=== PATIENT | male | born 1950 | race Caucasian/White ===

== ENCOUNTER → 2016-11-20 | Outpatient (CLI) | payer MEDICARE, OTHER ==
[2016-11-20 13:06] LABS: BASOPHILS % (AUTO) 0.6 %; EOSINOPHILS # (AUTO) 0.2 10^3/uL (0.0-0.7); EOSINOPHILS % (AUTO) 2.9 %; HCT - HEMATOCRIT 40.3 % (42.0-52.0); HGB - HEMOGLOBIN 13.5 g/dL (14.0-18.0); LYMPHOCYTES % (AUTO) 14.2 %; MEAN CORPUSCULAR HEMOGLOBIN 29.1 pg (27.0-31.0); MEAN CORPUSCULAR HGB CONC 33.6 g/dL (32.0-36.0); MEAN CORPUSCULAR VOLUME 86.6 fL (80.0-94.0); MEAN PLATELET VOLUME 9.4 fL (7.4-11.4); MONOCYTES # (AUTO) 0.5 10^3/uL (0.0-1.0); MONOCYTES % (AUTO) 7.7 %; NEUTROPHILS % (AUTO) 74.6 %; RED BLOOD COUNT 4.65 10^6/uL (4.70-6.10); RED CELL DISTRIBUTION WIDTH 14.6 % (12.0-15.0); UNCORRECTED WHITE BLOOD COUNT 6.7 x10^3/uL; WHITE BLOOD COUNT 6.7 x10^3/uL (4.8-10.8)
[2016-11-20 13:18] LABS: ALBUMIN/GLOBULIN RATIO 1.2 (1.0-2.2); BILIRUBIN,TOTAL 0.7 mg/dL (0.2-1.0); CALCIUM 8.4 mg/dL (8.5-10.3); CREATININE 0.9 mg/dL (0.6-1.2); POTASSIUM 3.8 mmol/L (3.5-5.0); TOTAL PROTEIN 6.8 g/dL (6.7-8.2)
== END ==
LOC: LAB.WCP 08:00
PROVIDERS: ATTEND Family Medicine
DX: R06.09 Other forms of dyspnea (principal); R01.1 Cardiac murmur, unspecified; M79.661 Pain in right lower leg
CPT/HCPCS: 36415; 80053; 83880; 85025

== ENCOUNTER 2016-12-04 10:15 | Outpatient (CLI) | payer MEDICARE, OTHER ==
[2016-12-04 13:05] LABS: BASOPHILS # (AUTO) 0.1 10^3/uL (0.0-0.1); BASOPHILS % (AUTO) 1.3 %; EOSINOPHILS # (AUTO) 0.3 10^3/uL (0.0-0.7); EOSINOPHILS % (AUTO) 5.2 %; HCT - HEMATOCRIT 42.4 % (42.0-52.0); HGB - HEMOGLOBIN 14.1 g/dL (14.0-18.0); LYMPHOCYTES # (AUTO) 1.2 10^3/uL (1.5-3.5); LYMPHOCYTES % (AUTO) 21.7 %; MEAN CORPUSCULAR HGB CONC 33.2 g/dL (32.0-36.0); MEAN CORPUSCULAR VOLUME 87.5 fL (80.0-94.0); MEAN PLATELET VOLUME 9.6 fL (7.4-11.4); MONOCYTES # (AUTO) 0.4 10^3/uL (0.0-1.0); MONOCYTES % (AUTO) 7.4 %; NEUTROPHILS # (AUTO) 3.5 10^3/uL (1.5-6.6); NEUTROPHILS % (AUTO) 64.4 %; NUCLEATED RED BLOOD CELLS AUTO 0.2 /100WBC; RED BLOOD COUNT 4.85 10^6/uL (4.70-6.10); UNCORRECTED WHITE BLOOD COUNT 5.5 x10^3/uL; WHITE BLOOD COUNT 5.5 x10^3/uL (4.8-10.8)
[2016-12-04 13:36] LABS: FERRITIN 122.1 ng/mL (23.9-336.2)
[2016-12-04 13:47] LABS: IRON 38 ug/dL (45-182); TOTAL IRON BINDING CAPACITY 293 ug/dL (250-450); TRANSFERRIN 209 mg/dL (180-329)
== END 2016-12-04 10:16 | disposition home or self-care (01) ==
LOC: LAB.WCP 10:15
PROVIDERS: ATTEND Physician Assistant Medical
DX: D64.9 Anemia, unspecified (principal)
CPT/HCPCS: 36415; 82607; 82728; 82746; 83540; 84466; 85025

== ENCOUNTER 2016-12-12 08:34 | Outpatient (CLI) | payer MEDICARE, OTHER ==
--- NOTE | 2016-12-12 11:24 | CARDIAC PROCEDURE NOTE ---
DATE OF SERVICE: 12/12/2016 00:00:00 PRIMARY CARE PHYSICIAN: Sun Mckeon PA-C. ORDERING PHYSICIAN: Yamil Mercado MD. PROCEDURE: Stress echocardiogram. PROCEDURE SYMPTOMS: Dyspnea on exertion and undiagnosed murmur. CARDIAC RISK FACTORS: Age, hypertension, hyperlipidemia and smoker. PREVIOUS CARDIAC PROCEDURES: None. CURRENT SYMPTOMATOLOGY: None. CLINICAL HISTORY: A 66-year-old male without known coronary artery disease. The patient decided on his own not to take his blood pressure medicines this morning. INITIAL RESTING VITAL SIGNS: Blood pressure 174/104, heart rate 86, height 69 inches, weight 263 pounds. BMI 38.9. PROCEDURE AND FINDINGS: The patient's identity and date verified. Consent signed. After resting echocardiogram images were obtained, the patient performed treadmill exercise using a Luis Fernando protocol completing 6 minutes, 19 seconds and an estimated workload of 7.0 metabolic equivalents. Maximal blood pressure was 246/116 with a heart rate of 150 beats per minute or 96% of maximum predicted heart rate for age. The blood pressure response to exercise was hypertensive. The patient stopped because he rated exercise as 17/20 and his target heart rate had been achieved. He cited dyspnea as his reason for stopping. The resting ECG demonstrated normal sinus rhythm. The only abnormality was a Q-wave in V2. There was less than 0.[address] segment depression and no ectopy. Post-exercise images were obtained immediately on cessation of exercise. FINAL IMPRESSION 1. No ECG signs of ischemia, test incomplete, awaiting echocardiographic report. 2. Q-wave present in V2 only. 3. Hypertensive. The patient did not take blood pressure medications this morning. 4. Negative stress test clinically for angina. 5. No ectopy. Faint systolic murmur heard at peak exercise. JOB #: [id number] EXT JOB #:[id number] ZHANNA
[2016-12-12 16:06] VITALS: BP 174/104
== END 2016-12-12 08:35 | disposition home or self-care (01) ==
LOC: DI 08:34
PROVIDERS: ATTEND Family Medicine
DX: R01.1 Cardiac murmur, unspecified (principal); R06.09 Other forms of dyspnea; I10 Essential (primary) hypertension; E78.5 Hyperlipidemia, unspecified; F17.200 Nicotine dependence, unspecified, uncomplicated
CPT/HCPCS: 93306; 93351

== ENCOUNTER 2017-01-03 10:40 | Outpatient (CLI) | payer MEDICARE, OTHER ==
[2017-01-03 19:14] LABS: BASOPHILS % (AUTO) 0.9 %; EOSINOPHILS # (AUTO) 0.2 10^3/uL (0.0-0.7); EOSINOPHILS % (AUTO) 3.7 %; HCT - HEMATOCRIT 43.7 % (42.0-52.0); HGB - HEMOGLOBIN 14.6 g/dL (14.0-18.0); LYMPHOCYTES # (AUTO) 1.3 10^3/uL (1.5-3.5); LYMPHOCYTES % (AUTO) 22.3 %; MEAN CORPUSCULAR HEMOGLOBIN 29.4 pg (27.0-31.0); MEAN CORPUSCULAR HGB CONC 33.4 g/dL (32.0-36.0); MEAN CORPUSCULAR VOLUME 88.2 fL (80.0-94.0); MEAN PLATELET VOLUME 9.3 fL (7.4-11.4); MONOCYTES # (AUTO) 0.4 10^3/uL (0.0-1.0); MONOCYTES % (AUTO) 6.3 %; NEUTROPHILS # (AUTO) 3.8 10^3/uL (1.5-6.6); NEUTROPHILS % (AUTO) 66.8 %; NUCLEATED RED BLOOD CELLS AUTO 0.1 /100WBC; RED BLOOD COUNT 4.95 10^6/uL (4.70-6.10); RED CELL DISTRIBUTION WIDTH 14.8 % (12.0-15.0); UNCORRECTED WHITE BLOOD COUNT 5.7 x10^3/uL; WHITE BLOOD COUNT 5.7 x10^3/uL (4.8-10.8)
[2017-01-03 19:45] LABS: CHOL/HDL RATIO 3.4 (<5.0); CHOLESTEROL 212 mg/dL; HDL CHOLESTEROL 62 mg/dL; IRON 111 ug/dL (45-182); LDL/HDL RATIO 2.1 (<3.6); TOTAL IRON BINDING CAPACITY 318 ug/dL (250-450); TRANSFERRIN 227 mg/dL (180-329); TRIGLYCERIDES 94 mg/dL; VLDL CHOLESTEROL 19 mg/dL
== END 2017-01-03 10:41 | disposition home or self-care (01) ==
LOC: LAB.WCP 10:40
PROVIDERS: ATTEND Physician Assistant Medical
DX: E78.5 Hyperlipidemia, unspecified (principal); D64.9 Anemia, unspecified; Z78.9 Other specified health status
CPT/HCPCS: 36415; 80061; 82728; 83540; 84466; 85025; 86803

== ENCOUNTER 2017-03-03 10:29 | Outpatient (CLI) | payer MEDICARE, OTHER | END 2017-03-03 10:30 | disposition home or self-care (01) | LOC: LAB.WCP 10:29 | PROVIDERS: ATTEND Internal Medicine Cardiovascular Disease | DX: R01.1 Cardiac murmur, unspecified (principal); R06.09 Other forms of dyspnea; I50.42 Chronic combined systolic (congestive) and diastolic (congestive) heart failure; I10 Essential (primary) hypertension | CPT/HCPCS: 36415; 83880; 85379 ==

== ENCOUNTER 2017-03-04 08:18 | Outpatient (CLI) | payer MEDICARE, OTHER ==
[2017-03-04] MEDS ORDERED: IOPAMIDOL-300 100 ML VIAL ONE (08:34)
[2017-03-04 09:22] LABS: CALCIUM 8.7 mg/dL (8.5-10.3); CREATININE 0.9 mg/dL (0.6-1.2); POTASSIUM 3.8 mmol/L (3.5-5.0)
[2017-03-04] MEDS ORDERED: IOPAMIDOL-300 100 ML VIAL IVP ONE (09:42)
--- NOTE | 2017-03-04 16:54 | CT Report ---
CT PULMONARY ANGIOGRAM: 03/04/2017 CLINICAL INDICATION: Dyspnea on exertion. Axial CT images of the chest were obtained with 80 mL Isovue-300 intravenously. Sagittal and coronal 3D reconstructions were performed. In accordance with CT protocol optimization, one or more of the following dose reduction techniques w ere utilized for this exam: automated exposure control, adjustment of mA and/or KV based on patient size, or use of iterative reconstructive technique. COMPARISON: 11/02/2014 The heart and great vessels demonstrate atherosclerotic calcification. No hilar or mediastinal lymph adenopathy is present. There is no evidence of pulmonary embolus. Minimal consolidation is seen in the medial right lower lobe, and minimal bronchiectasis is present. No effusion or pneumothorax is s een. Limited evaluation of upper abdominal structures demonstrates normal adrenal glands. Osseous s tructures demonstrate degenerative changes. IMPRESSION: NO EVIDENCE OF PULMONARY EMBOLUS. JOB #: [id number] EXT JOB #:[id number]
== END 2017-03-04 08:19 | disposition home or self-care (01) ==
LOC: DI 08:18
PROVIDERS: ATTEND Internal Medicine Cardiovascular Disease
DX: R01.1 Cardiac murmur, unspecified (principal); R06.09 Other forms of dyspnea; I50.42 Chronic combined systolic (congestive) and diastolic (congestive) heart failure; I11.0 Hypertensive heart disease with heart failure
CPT/HCPCS: 36415; 71275; 80048; 93306; Q9967

== ENCOUNTER 2017-04-03 13:05 | Outpatient (CLI) | payer MEDICARE, OTHER | END 2017-04-03 13:06 | disposition home or self-care (01) | LOC: SC 13:05 | PROVIDERS: ATTEND Specialist | DX: G47.30 Sleep apnea, unspecified (principal); R51 Headache; E66.9 Obesity, unspecified; Z68.38 Body mass index [BMI] 38.0-38.9, adult; R53.83 Other fatigue; R06.83 Snoring | CPT/HCPCS: 99205; G0463; 99212 ==

== ENCOUNTER 2017-04-11 13:39 | Outpatient (CLI) | payer MEDICARE, OTHER ==
[2017-04-11 18:38] LABS: BASOPHILS % (AUTO) 0.7 %; EOSINOPHILS # (AUTO) 0.3 10^3/uL (0.0-0.7); EOSINOPHILS % (AUTO) 4.4 %; HCT - HEMATOCRIT 43.8 % (42.0-52.0); HGB - HEMOGLOBIN 14.3 g/dL (14.0-18.0); LYMPHOCYTES # (AUTO) 1.3 10^3/uL (1.5-3.5); LYMPHOCYTES % (AUTO) 22.7 %; MEAN CORPUSCULAR HEMOGLOBIN 29.4 pg (27.0-31.0); MEAN CORPUSCULAR HGB CONC 32.7 g/dL (32.0-36.0); MEAN PLATELET VOLUME 9.7 fL (7.4-11.4); MONOCYTES # (AUTO) 0.4 10^3/uL (0.0-1.0); MONOCYTES % (AUTO) 6.5 %; NEUTROPHILS # (AUTO) 3.9 10^3/uL (1.5-6.6); NEUTROPHILS % (AUTO) 65.7 %; NUCLEATED RED BLOOD CELLS AUTO 0.1 /100WBC; RED BLOOD COUNT 4.87 10^6/uL (4.70-6.10); RED CELL DISTRIBUTION WIDTH 14.4 % (12.0-15.0); UNCORRECTED WHITE BLOOD COUNT 5.9 x10^3/uL; WHITE BLOOD COUNT 5.9 x10^3/uL (4.8-10.8)
== END 2017-04-11 13:40 | disposition home or self-care (01) ==
LOC: LAB.WCP 13:39
PROVIDERS: ATTEND Physician Assistant Medical
DX: D64.9 Anemia, unspecified (principal)
CPT/HCPCS: 36415; 82728; 85025

== ENCOUNTER 2017-04-22 13:08 | Outpatient (CLI) | payer MEDICARE, OTHER ==
--- NOTE | 2017-04-24 11:07 | Ultrasound Report ---
DATE OF SERVICE: 04/22/2017 BILATERAL LOWER EXTREMITY DUPLEX ULTRASOUND: 04/22/2017 No comparison. INDICATION: Dyspnea and elevated D-dimer. TECHNIQUE: Sonographic evaluation of the lower extremity veins. FINDINGS: Bilateral lower extremity veins appear widely patent. All compress normally, and demonstrate a normal response to respiratory variation and augmentation. IMPRESSION: Bilateral lower extremities negative for deep venous thrombosis. TD: 04/22/2017 22:41 [facility]
== END 2017-04-22 13:09 | disposition home or self-care (01) ==
LOC: DI 13:08
PROVIDERS: ATTEND Internal Medicine Cardiovascular Disease
DX: R06.00 Dyspnea, unspecified (principal)
CPT/HCPCS: 78580; 93970

== ENCOUNTER 2017-05-02 10:11 | Outpatient (CLI) | payer MEDICARE, OTHER ==
--- NOTE | 2017-05-02 11:37 | XRAY Report ---
EXAM: CHEST RADIOGRAPHY EXAM DATE: 05/02/2017 10:46 AM. CLINICAL HISTORY: DYSPNEA ON EXERTION. COMPARISON: 03/04/2017. TECHNIQUE: 2 views. FINDINGS: Lungs/Pleura: No focal opacities evident. No pleural effusion. No pneumothorax. Normal volumes. Mediastinum: Heart and mediastinal contours are unremarkable. Minimal atherosclerotic calcification i n the aortic arch. Other: Thoracic spine vertebral endplate osteophytes are present. IMPRESSION: No acute cardiopulmonary abnormality. [facility] Referring Provider Line: [phone] SITE ID: [id number]
== END 2017-05-02 10:12 | disposition home or self-care (01) ==
LOC: DI 10:11
PROVIDERS: ATTEND Internal Medicine Cardiovascular Disease
DX: R06.00 Dyspnea, unspecified (principal)
CPT/HCPCS: 71046

== ENCOUNTER 2017-09-08 20:22 | Outpatient (CLI) | payer MEDICARE, OTHER | END 2017-09-08 20:23 | disposition home or self-care (01) | LOC: SC 20:22 | PROVIDERS: ATTEND Internal Medicine Pulmonary Disease | DX: G47.33 Obstructive sleep apnea (adult) (pediatric) (principal); G47.61 Periodic limb movement disorder | CPT/HCPCS: 95810 ==

== ENCOUNTER 2017-09-29 10:23 | Outpatient (CLI) | payer MEDICARE, OTHER | END 2017-09-29 10:24 | disposition home or self-care (01) | LOC: SC 10:23 | PROVIDERS: ATTEND Internal Medicine Pulmonary Disease | DX: G47.33 Obstructive sleep apnea (adult) (pediatric) (principal) | CPT/HCPCS: 99213; G0463; 99212 ==

== ENCOUNTER 2017-11-13 19:46 | Outpatient (CLI) | payer MEDICARE, OTHER | END 2017-11-13 19:47 | disposition home or self-care (01) | LOC: SC 19:46 | PROVIDERS: ATTEND Internal Medicine Pulmonary Disease | DX: G47.33 Obstructive sleep apnea (adult) (pediatric) (principal); G47.61 Periodic limb movement disorder | CPT/HCPCS: 95811 ==

== ENCOUNTER 2017-12-02 11:24 | Outpatient (CLI) | payer MEDICARE, OTHER | END 2017-12-02 11:25 | disposition home or self-care (01) | LOC: SC 11:24 | PROVIDERS: ATTEND Nurse Practitioner Family | DX: G47.33 Obstructive sleep apnea (adult) (pediatric) (principal) | CPT/HCPCS: 99214; G0463; 99212 ==

== ENCOUNTER 2018-01-07 10:33 | Outpatient (CLI) | payer MEDICARE, OTHER | END 2018-01-07 10:34 | disposition home or self-care (01) | LOC: SC 10:33 | PROVIDERS: ATTEND Nurse Practitioner Family | DX: G47.33 Obstructive sleep apnea (adult) (pediatric) (principal) | CPT/HCPCS: 99214; G0463; 99212 ==

== ENCOUNTER 2018-04-05 09:25 | Outpatient (CLI) | payer MEDICARE, OTHER | END 2018-04-05 09:26 | disposition home or self-care (01) | LOC: RT 09:25 | PROVIDERS: ATTEND Physician Assistant Medical | DX: R06.09 Other forms of dyspnea (principal) | CPT/HCPCS: 94010; 94729 ==

== ENCOUNTER 2018-09-04 11:33 | Outpatient (CLI) | payer MEDICARE, OTHER ==
[2018-09-04 19:19] LABS: ALBUMIN 4.2 g/dL (3.2-5.5); ALBUMIN/GLOBULIN RATIO 1.6 (1.0-2.2); ALKALINE PHOSPHATASE 78 IU/L (42-121); ALT ALANINE AMINOTRANSFERASE 34 IU/L (10-60); AST ASPARTATE AMINOTRANSFERASE 28 IU/L (10-42); BILIRUBIN,TOTAL 1.1 mg/dL (0.2-1.0); BUN - BLOOD UREA NITROGEN 14 mg/dL (6-20); CALCIUM 8.6 mg/dL (8.5-10.3); CARBON DIOXIDE - CO2 30 mmol/L (21-32); CHLORIDE 102 mmol/L (101-111); CHOL/HDL RATIO 3.7 (<5.0); CHOLESTEROL 202 mg/dL; CREATININE 0.9 mg/dL (0.6-1.2); GFR - MDRD 84 (>89); GLUCOSE 106 mg/dL (70-100); HDL CHOLESTEROL 55 mg/dL; LDL CHOLESTEROL,CALCULATED 127 mg/dL; LDL/HDL RATIO 2.3 (<3.6); SODIUM 141 mmol/L (135-145); TOTAL PROTEIN 6.9 g/dL (6.7-8.2); VLDL CHOLESTEROL 20 mg/dL
== END 2018-09-04 11:34 | disposition home or self-care (01) ==
LOC: LAB.WCP 11:33
PROVIDERS: ATTEND Physician Assistant Medical
DX: E78.5 Hyperlipidemia, unspecified (principal)
CPT/HCPCS: 36415; 80053; 80061; 83721

== ENCOUNTER 2019-03-17 11:50 | Outpatient (CLI) | payer MEDICARE, OTHER ==
[2019-03-17 18:36] LABS: BASOPHILS % (AUTO) 0.2 %; EOSINOPHILS # (AUTO) 0.2 10^3/uL (0.0-0.7); EOSINOPHILS % (AUTO) 3.8 %; HGB - HEMOGLOBIN 13.7 g/dL (14.0-18.0); LYMPHOCYTES # (AUTO) 1.5 10^3/uL (1.5-3.5); LYMPHOCYTES % (AUTO) 33.6 %; MEAN CORPUSCULAR HEMOGLOBIN 29.8 pg (27.0-31.0); MEAN CORPUSCULAR HGB CONC 32.2 g/dL (32.0-36.0); MEAN CORPUSCULAR VOLUME 92.4 fL (80.0-94.0); MEAN PLATELET VOLUME 11.4 fL (7.4-11.4); MONOCYTES # (AUTO) 0.3 10^3/uL (0.0-1.0); MONOCYTES % (AUTO) 5.6 %; NEUTROPHILS # (AUTO) 2.5 10^3/uL (1.5-6.6); NEUTROPHILS % (AUTO) 56.4 %; PLT - PLATELET COUNT 176 10^3/uL (130-450); RED CELL DISTRIBUTION WIDTH 13.6 % (12.0-15.0); WHITE BLOOD COUNT 4.5 x10^3/uL (4.8-10.8)
[2019-03-17 18:56] LABS: ALBUMIN 4.2 g/dL (3.2-5.5); ALBUMIN/GLOBULIN RATIO 1.5 (1.0-2.2); ALKALINE PHOSPHATASE 60 IU/L (42-121); ALT ALANINE AMINOTRANSFERASE 24 IU/L (10-60); AST ASPARTATE AMINOTRANSFERASE 25 IU/L (10-42); BILIRUBIN,TOTAL 1.2 mg/dL (0.2-1.0); BUN - BLOOD UREA NITROGEN 13 mg/dL (6-20); CALCIUM 8.7 mg/dL (8.5-10.3); CARBON DIOXIDE - CO2 29 mmol/L (21-32); CHLORIDE 105 mmol/L (101-111); CHOL/HDL RATIO 3.7 (<5.0); CHOLESTEROL 205 mg/dL; CREATININE 0.8 mg/dL (0.6-1.2); GFR - MDRD 96 (>89); GLUCOSE 82 mg/dL (70-100); HDL CHOLESTEROL 56 mg/dL; LDL CHOLESTEROL,CALCULATED 119 mg/dL; LDL/HDL RATIO 2.1 (<3.6); SODIUM 141 mmol/L (135-145); VLDL CHOLESTEROL 30 mg/dL
== END 2019-03-17 23:59 | disposition home or self-care (01) ==
LOC: LAB.WCP 11:50
PROVIDERS: ATTEND Physician Assistant Medical
DX: E78.5 Hyperlipidemia, unspecified (principal); N40.1 Benign prostatic hyperplasia with lower urinary tract symptoms; N13.8 Other obstructive and reflux uropathy; D64.9 Anemia, unspecified
CPT/HCPCS: 36415; 80053; 80061; 83721; 84153; 85025

== ENCOUNTER 2019-07-26 13:53 | Outpatient (CLI) | payer MEDICARE, OTHER | END 2019-07-26 13:54 | disposition home or self-care (01) | LOC: COV 13:53 | PROVIDERS: ATTEND Family Medicine | DX: R05 Cough (principal); R50.9 Fever, unspecified | CPT/HCPCS: 81599 ==

== ENCOUNTER 2019-08-12 16:51 | Outpatient (CLI) | payer MEDICARE, OTHER ==
--- NOTE | 2019-08-12 12:03 | SLEEP CARE CONSULTATION ---
Information from patient questionnaire entered by Nilsa Meyers. I have reviewed and concur with the information entered by Nilsa Meyers. This document represents the service I personally performed and the decisions made by me, Dacia Carey, RN, MSN, DIRECTOR OF CAREER SERVICES. History of Present Illness Service Date and Time: 08/12/2019 1130 Previous diagnosis: Very Severe, Obstructive Sleep Apnea-Hypopnea Syndrome AHI: 90.1 Reason for follow up: annual Equipment type: CPAP Equipment obtained from: [employer] (difficulty getting supplies since March / would like to stay with this DME for now) Mask style: Full face (Dreamwear) Backup mask available: No (keep current mask when replaced) Last cushion change: 1 year CPAP Compliance Data - Data Reviewed with Patient Average duration of nightly device use: 6h 53m Compliance rate %: 90 Current pressure setting (cmH2O): 9-12 Humidity settin Heated hose settin Average residual AHI: 1.7 Average large leak: 29s Subjective Patient concerns: reports: mask leak noise (mild leak noise from old cushion ), nasal congestion (rare with allergies and dry throat ). denies: aerophagia, mask discomfort, air blowing in eyes, condensation in mask/hose, dry mouth, nose, throat, epistaxis, other Observed to snore while using device: Yes (rare) Current pressure setting perceived as: comfortable On therapy, patient: reports: sleeping better, awakening more refreshed, being more awake and alert during the day, more rested overall, other. denies: drowsiness while driving Initial [place] Sleepiness Scale score: 7 Physical Exam Height: 5 ft 9 in Impression and Plan 1. Obstructive Sleep Apnea-Hypopnea Syndrome, extremely severe, with good treatment compliance and good apnea control. On CPAP therapy, the patient has better sleep quality and is more rested overall. He is very pleased with benefit of treatment. However, he is having difficulty getting his supplies replaced. He was informed by [employer] that he needed a new prescription and annual visit. But on further discussion, it was noted that his mask had not been replaced in a year and he had to get emergency filter replacements from [employer] until this visit. I reviewed how his mask cushion could be replaced as often as monthly, mask every 3 months and headgear at 6 months etc. Thus he was advised to have [facility] give him a replacement schedule for his supplies with Medicare coverage. I will also add to his supply update order. For his rare nasal congestion and dry throat with allergies- I reviewed how his nasal congestion can be reduced with increasing the CPAP humidity. Saline nasal spray sample was also given to use prior to CPAP to clear nasal secretions and wash off any nasal allergens to facilitate nasal breathing. In addition, a steamy shower before bed will often assist nasal drainage. Patient's apnea severity and rationale for treatment to reduce apnea, improve sleep quality and reduce cardiovascular and cerebrovascular events was reviewed. * Continue CPAP pressure at 9-12 cmH2O * update supplies * implement methods to reduce nasal congestion * Notify me if snoring with mask or feeling that the pressure is too much or too little * Call this office if any problems using CPAP * Return for follow up in 1 year , or sooner if concerns arise Visit Type: Telehealth Phone (to minmize the risk of COVOD 19 exposure, the patient has requested and consented to this visit and for insurance to be billed.) Patient Location: Home Location of Provider: Home Patient agrees and consents to this telehealth visit type: Yes Time Spent with Patient (minutes): 10 Provider Statement: I spent 100% of the Telehealth Phone Call with the patient with greater than 50% spent counseling the patient and coordination of care.
== END 2019-08-12 16:52 | disposition home or self-care (01) ==
LOC: SC 16:51
PROVIDERS: ATTEND Nurse Practitioner Family
DX: G47.33 Obstructive sleep apnea (adult) (pediatric) (principal)

== ENCOUNTER 2020-04-05 08:00 | Outpatient (CLI) | payer MEDICARE, OTHER ==
[2020-04-05 18:11] LABS: BASOPHILS % (AUTO) 0.6 %; EOSINOPHILS # (AUTO) 0.3 10^3/uL (0.0-0.7); HGB - HEMOGLOBIN 13.7 g/dL (14.0-18.0); LYMPHOCYTES # (AUTO) 1.5 10^3/uL (1.5-3.5); LYMPHOCYTES % (AUTO) 29.3 %; MEAN CORPUSCULAR HGB CONC 31.6 g/dL (32.0-36.0); MEAN CORPUSCULAR VOLUME 91.7 fL (80.0-94.0); MEAN PLATELET VOLUME 10.9 fL (7.4-11.4); MONOCYTES # (AUTO) 0.3 10^3/uL (0.0-1.0); MONOCYTES % (AUTO) 5.5 %; NEUTROPHILS % (AUTO) 59.2 %; PLT - PLATELET COUNT 198 10^3/uL (130-450); RED BLOOD COUNT 4.72 10^6/uL (4.70-6.10); RED CELL DISTRIBUTION WIDTH 13.2 % (12.0-15.0); WHITE BLOOD COUNT 5.1 x10^3/uL (4.8-10.8)
[2020-04-05 19:01] LABS: ALBUMIN 4.2 g/dL (3.2-5.5); ALBUMIN/GLOBULIN RATIO 1.4 (1.0-2.2); ALKALINE PHOSPHATASE 76 IU/L (42-121); ALT ALANINE AMINOTRANSFERASE 24 IU/L (10-60); AST ASPARTATE AMINOTRANSFERASE 22 IU/L (10-42); BILIRUBIN,TOTAL 1.2 mg/dL (0.2-1.0); BUN - BLOOD UREA NITROGEN 13 mg/dL (6-20); CALCIUM 9.1 mg/dL (8.5-10.3); CARBON DIOXIDE - CO2 26 mmol/L (21-32); CHLORIDE 102 mmol/L (101-111); CHOL/HDL RATIO 4.5 (<5.0); CHOLESTEROL 237 mg/dL; CREATININE 0.9 mg/dL (0.6-1.2); GLUCOSE 103 mg/dL (70-100); HDL CHOLESTEROL 53 mg/dL; LDL CHOLESTEROL,CALCULATED 146 mg/dL; LDL/HDL RATIO 2.8 (<3.6); SODIUM 138 mmol/L (135-145); TOTAL PROTEIN 7.1 g/dL (6.7-8.2); VLDL CHOLESTEROL 38 mg/dL
== END 2020-04-05 23:59 | disposition home or self-care (01) ==
LOC: LAB.WCP 08:00
PROVIDERS: ATTEND Physician Assistant Medical
DX: I10 Essential (primary) hypertension (principal); E78.5 Hyperlipidemia, unspecified; D64.9 Anemia, unspecified; Z12.5 Encounter for screening for malignant neoplasm of prostate
CPT/HCPCS: 36415; 80053; 80061; 84443; 85025; G0103; 83721; 84153

== ENCOUNTER 2020-08-03 08:00 | Outpatient (CLI) | payer MEDICARE, OTHER ==
[2020-08-03 18:06] LABS: CHOL/HDL RATIO 3.1 (<5.0); CHOLESTEROL 154 mg/dL; HDL CHOLESTEROL 49 mg/dL; LDL CHOLESTEROL,CALCULATED 83 mg/dL; LDL/HDL RATIO 1.7 (<3.6); TRIGLYCERIDES 112 mg/dL; VLDL CHOLESTEROL 22 mg/dL
== END 2020-08-03 23:59 | disposition home or self-care (01) ==
LOC: LAB.WCP 08:00
PROVIDERS: ATTEND Physician Assistant Medical
DX: E78.5 Hyperlipidemia, unspecified (principal)
CPT/HCPCS: 36415; 80061; 83721

== ENCOUNTER 2020-08-23 09:15 | Outpatient (CLI) | payer MEDICARE, OTHER ==
--- NOTE | 2020-08-23 09:52 | SLEEP CARE CONSULTATION ---
Information from patient questionnaire entered by Tg Alcantara. I have reviewed and concur with the information entered by Tg Alcantara. This document represents the service I personally performed and the decisions made by , Vanessa Hernandez ARNP. History of Present Illness Service Date and Time: 08/23/2020 0915 Previous diagnosis: Extremely Severe, Obstructive Sleep Apnea-Hypopnea Syndrome AHI: 90.1 (in 2018) Reason for follow up: annual (last seen 07/2019) Equipment type: CPAP Equipment obtained from: [facility] (getting supplies as needed) Mask style: Full face Mask brand: Respironics (Dreamwear) Backup mask available: Yes (old mask) Last cushion change: 2 months ago Prior sleep studies: Yes Year and Where: 2018 - [facility] Type of Sleep Study: Polysomnography HPI additional information: BRITANY GALVEZ was diagnosed to have extremely severe, AHI 90.1, obstructive sleep apnea-hypopnea syndrome and returned today for CPAP therapy annual follow-up. CPAP Compliance Data - Data Reviewed with Patient Average duration of nightly device use: 7 hour 37 minutes Compliance rate %: 98.9 (180 days) Current pressure setting (cmH2O): 9-12 Humidity settin Heated hose settin Average residual AHI: 0.8 Average large leak: 15 min 44 sec Subjective Patient concerns: denies: aerophagia, mask discomfort, air blowing in eyes, mask leak noise, condensation in mask/hose, nasal congestion, dry mouth, nose, throat, epistaxis, other Observed to snore while using device: No Current pressure setting perceived as: comfortable On therapy, patient: reports: sleeping better, awakening more refreshed, being more awake and alert during the day, more rested overall. denies: drowsiness while driving Initial [place] Sleepiness Scale score: 7 (in 2017) Current [place] Sleepiness Scale score: 4 Allergies and Home Medications Home medication list reviewed: Yes (no changes) Review of Systems Review of systems same as previous: Yes (no changes) Physical Exam Heart Rate: 58 O2 Saturation: 95 Height: 5 ft 9 in Weight: 255 lb Weight change since last visit: 25 lb loss Body Mass Index: 37.6 BMI Classification: Obese Impression and Plan 1. Obstructive Sleep Apnea-Hypopnea Syndrome, extremely severe, with fair treatment compliance and good apnea control. On CPAP therapy, the patient has better sleep quality and is more rested overall. He has significant improvement of his apneas and is satisfied with his treatment. He denies any aerophagia, oral dryness. epistaxis or skin irritation. Patient has lost weight. Currently patients BMI is 37.6. He has been using [employer]. Obesity increases the risk of apnea, CPAP pressure requirements and overall health risks especially cardio vascular and diabetes. Thus patient is advised to continue to lose weight. The patient would like to reduce to 195 pounds. The patient's CPAP pressure range should accommodate some weight loss. Symptoms to report for additional pressure adjustment discussed. Patient's apnea severity and rationale for treatment to reduce apnea, improve sleep quality and reduce cardiovascular and cerebrovascular events was reviewed. I also reviewed the benefit of consistent device use of CPAP for hypertension adn congestive heart failure. * Continue auto CPAP pressure at 9-12 cmH2O * Notify me if snoring with mask or feeling that the pressure is too much or too little * Continue to try to lose weight * Call this office if any problems using CPAP * Return for follow up in 1 year, or sooner if concerns arise Counseling Topics: Spare mask, Weight loss health impact Visit Type: In Office Time Spent with Patient (minutes): 13 Provider Statement: I spent 100% of the Face to Face Visit with the patient with greater than 50% spent counseling the patient and coordination of care.
== END 2020-08-23 09:16 | disposition home or self-care (01) ==
LOC: SC 09:15
PROVIDERS: ATTEND Nurse Practitioner Family
DX: G47.33 Obstructive sleep apnea (adult) (pediatric) (principal); E66.9 Obesity, unspecified; Z68.37 Body mass index [BMI] 37.0-37.9, adult
CPT/HCPCS: 99212; G0463

== ENCOUNTER 2020-10-11 15:11 | Outpatient (CLI) | payer MEDICARE, OTHER ==
--- NOTE | 2020-10-12 11:52 | XRAY Report ---
PROCEDURE: Cervical Spine 2 View INDICATIONS: CHRONIC NECK PX TECHNIQUE: 3 view(s) of the cervical spine were acquired. COMPARISON: None. FINDINGS: Bones: No fractures or dislocations to the T2 level. The lateral masses of C1 appear intact on the odontoid view. No suspicious bony lesions. Moderate cervical spondylosis, with disc height loss and anterior osteophytes and uncovertebral joint hypertrophy from C4 C5-C6 C7, and multilevel facet scle rosis. Soft tissues: No prevertebral soft tissue swelling. IMPRESSION: Moderate cervical spondylosis. Reviewed by: Jet Servin MD on 10/12/2020 10:51 AM MATTHEW Approved by: Jet Servin MD on 10/12/2020 10:51 AM MATTHEW Station ID: [id number]
== END 2020-10-11 15:12 | disposition home or self-care (01) ==
LOC: DI.N 15:11
PROVIDERS: ATTEND Physician Assistant Medical
DX: M47.812 Spondylosis without myelopathy or radiculopathy, cervical region (principal); M54.2 Cervicalgia; G89.29 Other chronic pain

== ENCOUNTER 2021-04-10 10:54 | Outpatient (CLI) | payer MEDICARE, OTHER ==
[2021-04-10 18:28] LABS: BASOPHILS % (AUTO) 0.4 %; EOSINOPHILS # (AUTO) 0.2 10^3/uL (0.0-0.7); EOSINOPHILS % (AUTO) 3.9 %; HCT - HEMATOCRIT 43.6 % (42.0-52.0); HGB - HEMOGLOBIN 13.8 g/dL (14.0-18.0); LYMPHOCYTES # (AUTO) 1.5 10^3/uL (1.5-3.5); LYMPHOCYTES % (AUTO) 30.3 %; MEAN CORPUSCULAR HEMOGLOBIN 28.3 pg (27.0-31.0); MEAN CORPUSCULAR HGB CONC 31.7 g/dL (32.0-36.0); MEAN CORPUSCULAR VOLUME 89.5 fL (80.0-94.0); MEAN PLATELET VOLUME 10.6 fL (7.4-11.4); MONOCYTES # (AUTO) 0.3 10^3/uL (0.0-1.0); MONOCYTES % (AUTO) 6.6 %; NEUTROPHILS # (AUTO) 2.8 10^3/uL (1.5-6.6); PLT - PLATELET COUNT 231 10^3/uL (130-450); RED BLOOD COUNT 4.87 10^6/uL (4.70-6.10); RED CELL DISTRIBUTION WIDTH 13.5 % (12.0-15.0); WHITE BLOOD COUNT 4.8 x10^3/uL (4.8-10.8)
[2021-04-10 18:50] LABS: ALBUMIN 3.9 g/dL (3.2-5.5); ALBUMIN/GLOBULIN RATIO 1.2 (1.0-2.2); ALKALINE PHOSPHATASE 122 IU/L (42-121); ALT ALANINE AMINOTRANSFERASE 46 IU/L (10-60); AST ASPARTATE AMINOTRANSFERASE 32 IU/L (10-42); BILIRUBIN,TOTAL 0.5 mg/dL (0.2-1.0); BUN - BLOOD UREA NITROGEN 10 mg/dL (6-20); CALCIUM 8.8 mg/dL (8.5-10.3); CARBON DIOXIDE - CO2 28 mmol/L (21-32); CHLORIDE 102 mmol/L (101-111); CHOL/HDL RATIO 3.8 (<5.0); CHOLESTEROL 170 mg/dL; GFR - MDRD 74 (>89); GLUCOSE 98 mg/dL (70-100); HDL CHOLESTEROL 45 mg/dL; LDL CHOLESTEROL,CALCULATED 101 mg/dL; LDL/HDL RATIO 2.2 (<3.6); POTASSIUM 4.2 mmol/L (3.5-5.0); SODIUM 139 mmol/L (135-145); TOTAL PROTEIN 7.2 g/dL (6.7-8.2); TRIGLYCERIDES 121 mg/dL; VLDL CHOLESTEROL 24 mg/dL
== END 2021-04-10 23:59 | disposition home or self-care (01) ==
LOC: LAB.WCP 10:54
PROVIDERS: ATTEND Physician Assistant Medical
DX: E78.5 Hyperlipidemia, unspecified (principal); Z12.5 Encounter for screening for malignant neoplasm of prostate; I10 Essential (primary) hypertension
CPT/HCPCS: 36415; 80053; 80061; 85025; G0103; 83721; 84153

== ENCOUNTER 2021-05-14 11:17 | Outpatient (CLI) | payer MEDICARE, OTHER ==
[2021-05-14 12:54] VITALS: BP 139/78
--- NOTE | 2021-05-14 12:54 | SLEEP CARE CONSULTATION ---
Information from patient questionnaire entered by Arnold Ozuna MA. I have reviewed and concur with the information entered by Arnold Ozuna MA. This document represents the service I personally performed and the decisions made by me, Ray Dc MD, [facility]. History of Present Illness Service Date and Time: 05/14/2021 1117 Previous diagnosis: Extremely Severe, Obstructive Sleep Apnea-Hypopnea Syndrome AHI: 90.1 (in 2018) Reason for follow up: other (8 MONTH F/U) Equipment type: CPAP Equipment obtained from: [facility] (getting supplies as needed) Mask style: Full face Prior sleep [facility]: Yes [facility] Type of Sleep Study: Polysomnography HPI additional information: HPI: Mr. Galo was diagnosed to have very severe obstructive sleep apnea- hypopnea syndrome and returns today for follow up of CPAP therapy. The patient purchased the device from [employer] and was fitted with a full face mask. He uses the device nightly and all through the night. The compliance report shows that he uses the device 56 nights out of the past 60 nights, averaging 7.5 hours a night. He complains of no particular problem with the device such as soreness on the face, dry nose, epistaxis, nasal congestion or headache. He thinks that the pressure of 9 - 12 cmH2O is comfortable. On the CPAP therapy he notices improvement in his sleep quality, and that he wakes up feeling fresher in the morning and more awake/alert during the day. His notices no snore at all. [place] Sleepiness Scale score is 0. The average residual AHI is 0.5; and average time in large leak per day is 4 minutes a night. The 90th percentile pressure is 10.5 cmH2O. Sleep Study - Results Type of Sleep Study: Polysomnography Prior sleep studies: Yes Year and Where: 2017 - [facility] Subjective Current pressure setting perceived as: comfortable Initial [place] Sleepiness Scale score: 7 (in 2016) Current [place] Sleepiness Scale score: 0 (2021) Allergies and Home Medications Known drug allergies: No Drug allergies reviewed: Yes Home medication list reviewed: No Review of Systems Review of systems same as previous: Yes Physical Exam Vital signs obtained and entered by: Elmer OZUNA CMA AACHRIS Blood Pressure: 139/78 (RIGHT, PULSE 61) Cuff size: wrist Heart Rate: 67 O2 Saturation: 97 (WITH PAPER MASK) Height: 5 ft 9 in Weight: 265 lb (WITH CLOTHES) Body Mass Index: 39.1 BMI Classification: Obese Impression and Plan IMPRESSION: 1. Obstructive Sleep Apnea-Hypopnea Syndrome, very severe, with the patient continuing to do well on nasal CPAP therapy. He has excellent compliance and significant clinical benefits. The current pressure appears effective and comfortable. Overall, he is very satisfied with treatment and plans to continue with it long-term. No adjustment is necessary today. He would like a new machine because his machine is on the recall list. He registered it with [employer] last summer. He denies seeing debris in the air circuit. He denies having new respiratory symptoms (the patient smokes heavily). PLAN: 1. Continue with autoCPAP set at 9 - 12 cm H2O. 2. Try to lose weight 3. Quit smoking cigarettes. 4. Wait for a replacement machine to arrive. I cannot prescribe a new one for him at this time because his is not 5 years old yet. 5. Return in one year for follow up or earlier if there is any problem with the treatment. Follow up with Sleep Care in: 1 year Follow up recommended for: Weight management Visit Type: In Office Time Spent with Patient (minutes): 15 Provider Statement: I spent 100% of the Face to Face Visit with the patient with greater than 50% spent counseling the patient and coordination of care.
== END 2021-05-14 11:18 | disposition home or self-care (01) ==
LOC: SC 11:17
PROVIDERS: ATTEND Internal Medicine Pulmonary Disease
DX: G47.33 Obstructive sleep apnea (adult) (pediatric) (principal); E66.9 Obesity, unspecified; Z68.39 Body mass index [BMI] 39.0-39.9, adult
CPT/HCPCS: 99212; G0463

== ENCOUNTER 2022-10-07 11:01 | Outpatient (CLI) | payer MEDICARE, OTHER ==
[2022-10-07 17:34] LABS: BASOPHILS % (AUTO) 0.4 %; EOSINOPHILS # (AUTO) 0.2 10^3/uL (0.0-0.7); HCT - HEMATOCRIT 43.1 % (42.0-52.0); LYMPHOCYTES # (AUTO) 1.5 10^3/uL (1.5-3.5); LYMPHOCYTES % (AUTO) 31.5 %; MEAN CORPUSCULAR HEMOGLOBIN 28.6 pg (27.0-31.0); MEAN CORPUSCULAR HGB CONC 32.5 g/dL (32.0-36.0); MEAN PLATELET VOLUME 11.4 fL (7.4-11.4); MONOCYTES # (AUTO) 0.3 10^3/uL (0.0-1.0); MONOCYTES % (AUTO) 6.6 %; NEUTROPHILS # (AUTO) 2.7 10^3/uL (1.5-6.6); NEUTROPHILS % (AUTO) 57.3 %; PLT - PLATELET COUNT 180 10^3/uL (130-450); RED CELL DISTRIBUTION WIDTH 13.8 % (12.0-15.0); WHITE BLOOD COUNT 4.7 x10^3/uL (4.8-10.8)
[2022-10-07 17:57] LABS: ALBUMIN/GLOBULIN RATIO 1.3 (1.0-2.2); ALKALINE PHOSPHATASE 86 IU/L (42-121); ALT ALANINE AMINOTRANSFERASE 26 IU/L (10-60); AST ASPARTATE AMINOTRANSFERASE 21 IU/L (10-42); BILIRUBIN,TOTAL 1.1 mg/dL (0.2-1.0); BUN - BLOOD UREA NITROGEN 17 mg/dL (6-20); CARBON DIOXIDE - CO2 28 mmol/L (21-32); CHLORIDE 105 mmol/L (101-111); CHOL/HDL RATIO 3.5 (<5.0); CHOLESTEROL 187 mg/dL; GFR - MDRD 74 (>89); GLUCOSE 100 mg/dL (70-100); HDL CHOLESTEROL 54 mg/dL; LDL CHOLESTEROL,CALCULATED 107 mg/dL; POTASSIUM 4.1 mmol/L (3.5-5.0); SODIUM 140 mmol/L (135-145); TOTAL PROTEIN 7.2 g/dL (6.7-8.2); TRIGLYCERIDES 129 mg/dL; VLDL CHOLESTEROL 26 mg/dL
[2022-10-07 18:15] LABS: PSA FREE 0.239 ng/mL (0.16-2.81)
[2022-10-07 18:16] LABS: PSA TOTAL 1.002 ng/mL (0.000-2.000)
== END 2022-10-07 11:02 | disposition home or self-care (01) ==
LOC: LAB.N 11:01
PROVIDERS: ATTEND Physician Assistant Medical
DX: R97.20 Elevated prostate specific antigen [PSA] (principal); E78.5 Hyperlipidemia, unspecified; D64.9 Anemia, unspecified
CPT/HCPCS: 36415; 80053; 80061; 83721; 84153; 84154; 84403; 85025

== ENCOUNTER 2022-10-09 13:48 | Outpatient (CLI) | payer MEDICARE, OTHER ==
--- NOTE | 2022-10-10 17:05 | XRAY Report ---
PROCEDURE: Chest 2 View X-Ray INDICATIONS: BRONCHITIS, ACUTE TECHNIQUE: 2 views of the chest were acquired. COMPARISON: Prior chest radiograph dated 06/11/2019 FINDINGS: Surgical changes and devices: None. Lungs and pleura: No pleural effusions or pneumothorax. Lungs are clear. Mediastinum: Mediastinal contours appear normal. Heart size is normal. Bones and chest wall: No suspicious bony lesions. Overlying soft tissues appear unremarkable. IMPRESSION: No acute cardiopulmonary process. Reviewed by: AZIZA Moss on 10/10/2022 5:04 PM PDT Approved by: Pearl Matamoros MD on 10/10/2022 5:04 PM PDT Station ID: [id number]
== END 2022-10-09 13:49 | disposition home or self-care (01) ==
LOC: DI.N 13:48
PROVIDERS: ATTEND Physician Assistant Medical
DX: J20.9 Acute bronchitis, unspecified (principal)

== ENCOUNTER 2022-11-04 13:45 | Outpatient (CLI) | payer MEDICARE, OTHER ==
[2022-11-04 17:43] LABS: BASOPHILS % (AUTO) 0.2 %; EOSINOPHILS # (AUTO) 0.1 10^3/uL (0.0-0.7); EOSINOPHILS % (AUTO) 2.3 %; HCT - HEMATOCRIT 38.8 % (42.0-52.0); HGB - HEMOGLOBIN 12.8 g/dL (14.0-18.0); LYMPHOCYTES # (AUTO) 1.1 10^3/uL (1.5-3.5); LYMPHOCYTES % (AUTO) 18.7 %; MEAN CORPUSCULAR HEMOGLOBIN 28.4 pg (27.0-31.0); MEAN PLATELET VOLUME 10.5 fL (7.4-11.4); MONOCYTES # (AUTO) 0.4 10^3/uL (0.0-1.0); NEUTROPHILS # (AUTO) 4.1 10^3/uL (1.5-6.6); NEUTROPHILS % (AUTO) 71.1 %; PLT - PLATELET COUNT 260 10^3/uL (130-450); RED BLOOD COUNT 4.51 10^6/uL (4.70-6.10); RED CELL DISTRIBUTION WIDTH 13.8 % (12.0-15.0); WHITE BLOOD COUNT 5.7 x10^3/uL (4.8-10.8)
[2022-11-04 18:10] LABS: THYROID STIMULATING HORMONE 0.85 uIU/mL (0.34-5.60)
[2022-11-04 18:47] LABS: ALBUMIN 3.9 g/dL (3.2-5.5); ALBUMIN/GLOBULIN RATIO 1.2 (1.0-2.2); BILIRUBIN,TOTAL 0.9 mg/dL (0.2-1.0); CALCIUM 8.6 mg/dL (8.5-10.3); CREATININE 0.8 mg/dL (0.6-1.2); POTASSIUM 3.9 mmol/L (3.5-5.0); TOTAL PROTEIN 7.2 g/dL (6.7-8.2)
[2022-11-04 20:48] LABS: ESTIMATED AVERAGE GLUCOSE 117 mg/dL (70-100); HEMOGLOBIN A1c% 5.7 % (4.27-6.07)
== END 2022-11-04 14:00 | disposition home or self-care (01) ==
LOC: LAB.N 13:45
PROVIDERS: ATTEND Registered Nurse
DX: R06.09 Other forms of dyspnea (principal); R53.83 Other fatigue
CPT/HCPCS: 36415; 80053; 83036; 84443; 85025

== ENCOUNTER 2023-04-01 12:02 | Outpatient (CLI) | payer MEDICARE, OTHER ==
[2023-04-01 17:56] LABS: BASOPHILS % (AUTO) 0.4 %; EOSINOPHILS # (AUTO) 0.1 10^3/uL (0.0-0.7); EOSINOPHILS % (AUTO) 3.1 %; HCT - HEMATOCRIT 44.8 % (42.0-52.0); HGB - HEMOGLOBIN 14.5 g/dL (14.0-18.0); LYMPHOCYTES # (AUTO) 1.7 10^3/uL (1.5-3.5); LYMPHOCYTES % (AUTO) 37.3 %; MEAN CORPUSCULAR HEMOGLOBIN 28.7 pg (27.0-31.0); MEAN CORPUSCULAR HGB CONC 32.4 g/dL (32.0-36.0); MEAN CORPUSCULAR VOLUME 88.5 fL (80.0-94.0); MEAN PLATELET VOLUME 11.3 fL (7.4-11.4); MONOCYTES # (AUTO) 0.3 10^3/uL (0.0-1.0); MONOCYTES % (AUTO) 7.5 %; NEUTROPHILS # (AUTO) 2.3 10^3/uL (1.5-6.6); NEUTROPHILS % (AUTO) 51.5 %; PLT - PLATELET COUNT 174 10^3/uL (130-450); RED BLOOD COUNT 5.06 10^6/uL (4.70-6.10); RED CELL DISTRIBUTION WIDTH 13.2 % (12.0-15.0); WHITE BLOOD COUNT 4.5 x10^3/uL (4.8-10.8)
[2023-04-01 18:30] LABS: ALBUMIN 4.4 g/dL (3.2-5.5); ALBUMIN/GLOBULIN RATIO 1.7 (1.0-2.2); ALKALINE PHOSPHATASE 68 IU/L (42-121); ALT ALANINE AMINOTRANSFERASE 20 IU/L (10-60); AST ASPARTATE AMINOTRANSFERASE 17 IU/L (10-42); BILIRUBIN,TOTAL 1.1 mg/dL (0.2-1.0); BUN - BLOOD UREA NITROGEN 11 mg/dL (6-20); CALCIUM 9.3 mg/dL (8.5-10.3); CARBON DIOXIDE - CO2 31 mmol/L (21-32); CHLORIDE 103 mmol/L (101-111); CHOL/HDL RATIO 3.4 (<5.0); CHOLESTEROL 172 mg/dL; CREATININE 0.9 mg/dL (0.6-1.3); GFR - MDRD 83 (>89); GLUCOSE 95 mg/dL (74-104); HDL CHOLESTEROL 51 mg/dL; LDL CHOLESTEROL,CALCULATED 80 mg/dL; LDL/HDL RATIO 1.6 (<3.6); SODIUM 139 mmol/L (135-145); TRIGLYCERIDES 203 mg/dL (48-352); VLDL CHOLESTEROL 41 mg/dL
== END 2023-04-01 12:03 | disposition home or self-care (01) ==
LOC: LAB.N 12:02
PROVIDERS: ATTEND Physician Assistant Medical
DX: I10 Essential (primary) hypertension (principal); E78.5 Hyperlipidemia, unspecified
CPT/HCPCS: 36415; 80053; 80061; 83721; 85025

== ENCOUNTER 2023-10-15 10:29 | Outpatient (CLI) | payer MEDICARE, OTHER ==
--- NOTE | 2023-10-15 10:55 | Sleep Patient Instructions ---
Sleep Center Visit Summary - Patient Visit Information Reason for Visit: Annual follow-up - Patient Instructions Additional Instructions: You will continue with CPAP therapy with pressure set at 9-12 cmH2O. A supply prescription will be updated with your DME. We encourage you to continue to try to lose weight. Please follow up with the sleep care office in 1 year. - Clinic Information Contact: [facility] [address] [place] [address] [email or web address] T: [phone]
--- NOTE | 2023-10-15 10:58 | SLEEP CARE CONSULTATION ---
Information from patient questionnaire entered by Chanelle Harvey. I have reviewed and concur with the information entered by Chanelle Harvey. This document represents the service I personally performed and the decisions made by me, Vanessa Hernandez ARNP. History of Present Illness Service Date and Time: 10/15/2023 1029 Previous diagnosis: Extremely Severe, Obstructive Sleep Apnea-Hypopnea Syndrome AHI: 90.1 (in 2018) Reason for follow up: annual (LAST SEEN 04/2021) Equipment type: CPAP (Dreamstation 2, s/u 09/2017) Equipment obtained from: Other ([facility]; getting supplies as needed) Mask style: Full face (hybrid full face mask) Backup mask available: Yes Last cushion change: couple weeks Prior sleep studies: Yes Year and Where: 2017 - [facility] Type of Sleep Study: Polysomnography HPI additional information: BRITANY GALVEZ was diagnosed to have extremely severe, AHI 90.1, obstructive sleep apnea-hypopnea syndrome and returned today for CPAP therapy annual follow-up. Sleep Study - Results Type of Sleep Study: Polysomnography Prior sleep studies: Yes Year and Where: 2017 - [facility] CPAP Compliance Data - Data Reviewed with Patient Average duration of nightly device use: 5 HRS 54 MINS 48 SECS Compliance rate %: 78.9 (10/11/22-10/10/23; 296/365 days used) Current pressure setting (cmH2O): 9-12 Average residual AHI: 0.6 Central apnea: 0 Obstructive apnea: 0.2 Hypopnea: 0.4 Average large leak: 3 mins 59 secs Compliance data discussion: He uses his machine every night. Subjective Patient concerns: denies: aerophagia, mask discomfort, air blowing in eyes, mask leak noise, condensation in mask/hose, nasal congestion, dry mouth, nose, throat, epistaxis Observed to snore while using device: No Current pressure setting perceived as: comfortable On therapy, patient: reports: sleeping better, awakening more refreshed, being more awake and alert during the day, more rested overall. denies: drowsiness while driving Initial [place] Sleepiness Scale score: 7 (in 2017) Current [place] Sleepiness Scale score: 3 (10/15/23) Allergies and Home Medications Known drug allergies: Yes (as listed) Drug allergies reviewed: Yes Home medication list reviewed: Yes (Clopidogrel, nitroglycerin, Eliquis) Allergy and home medication list: Allergies levofloxacin Allergy (Verified 10/15/23 10:33) Unknown doxycycline Adverse Reaction (Verified 10/15/23 10:48) Dizziness methylprednisolone Adverse Reaction (Verified 10/15/23 10:48) Dizziness Home Medications Meloxicam See Rx Instructions .ROUTE .COMPLEX 11/02/14 [History] Methotrexate Sodium/Pf [Methotrexate 25 mg/ml Vial] See Rx Instructions .ROUTE .COMPLEX 11/02/14 [History] Rosuvastatin Calcium [Crestor] See Rx Instructions .ROUTE .COMPLEX 11/02/14 [History] lisinopriL [Lisinopril] See Rx Instructions .ROUTE .COMPLEX 11/02/14 [History] Apixaban [Eliquis] See Rx Instructions .ROUTE .COMPLEX 10/15/23 [History] Clopidogrel [Plavix] See Rx Instructions .ROUTE .COMPLEX 10/15/23 [History] Nitroglycerin See Rx Instructions .ROUTE .COMPLEX 10/15/23 [History] Review of Systems Review of systems same as previous: No (2 HEART STENTS, July 18, 2023) Physical Exam Vital signs obtained and entered by: CHANELLE Singh MA Blood Pressure: 121/68 (RIGHT ARM) Cuff size: long Heart Rate: 66 O2 Saturation: 97 Height: 5 ft 9 in Weight: 246 lb 3.2 oz Weight change since last visit: 19 lbs loss Body Mass Index: 36.3 BMI Classification: Obese Impression and Plan 1. Obstructive Sleep Apnea-Hypopnea Syndrome, extremely severe, with good treatment compliance and good apnea control. On CPAP therapy, the patient has better sleep quality and is more rested overall. He has great compliance and says he uses his CPAP every night. His machine shows a gap in use but he says this happened last year where the machine did not record his use. Patient has significant improvement of their sleep apnea and is satisfied with current CPAP therapy. Patient denies problems with oral dryness, nasal congestion, epistaxis, skin irritation or aerophagia. Patient's apnea severity and rationale for treatment to reduce apnea, improve sleep quality and reduce cardiovascular and cerebrovascular events was reviewed. I also reviewed the benefit of consistent device use of CPAP for hypertension, cardiac disease (CHF). 2. Obesity, unspecified. Currently patients BMI is 36.3. Obesity increases the risk of apnea, CPAP pressure requirements and overall health risks especially cardiovascular and diabetes. Thus patient is advised to continue to try to lose weight. * Continue auto CPAP pressure at 9-12 cmH2O * Update supply prescription * Notify me if snoring with mask or feeling that the pressure is too much or too little * Attempt to lose weight * Call this office if any problems using CPAP * Return for follow up in 12 months, or sooner if concerns arise Counseling Topics: Spare mask, Weight loss health impact Prescriptions: Device supplies Follow up with Sleep Care in: 1 year Visit Type: In Office Time Spent with Patient (minutes): 16 Provider Statement: I spent 100% of the Face to Face Visit with the patient with greater than 50% spent counseling the patient and coordination of care.
[2023-10-15 11:02] VITALS: BP 121/68; O2SAT 97
== END 2023-10-15 10:30 | disposition home or self-care (01) ==
LOC: SC 10:29
PROVIDERS: ATTEND Nurse Practitioner Family
DX: G47.33 Obstructive sleep apnea (adult) (pediatric) (principal); E66.9 Obesity, unspecified; Z68.36 Body mass index [BMI] 36.0-36.9, adult; I50.42 Chronic combined systolic (congestive) and diastolic (congestive) heart failure; I48.0 Paroxysmal atrial fibrillation
CPT/HCPCS: 36415; 80053; 83735; 84443; 85027; 99212; G0463

== ENCOUNTER 2023-10-15 11:06 | Outpatient (CLI) | payer MEDICARE, OTHER ==
[2023-10-15 18:44] LABS: HCT - HEMATOCRIT 43.1 % (42.0-52.0); MEAN CORPUSCULAR HGB CONC 32.5 g/dL (32.0-36.0); MEAN CORPUSCULAR VOLUME 89.4 fL (80.0-94.0); MEAN PLATELET VOLUME 11.3 fL (7.4-11.4); RED BLOOD COUNT 4.82 10^6/uL (4.70-6.10); RED CELL DISTRIBUTION WIDTH 13.7 % (12.0-15.0); WHITE BLOOD COUNT 4.5 x10^3/uL (4.8-10.8)
[2023-10-15 19:14] LABS: ALBUMIN 4.4 g/dL (3.2-5.5); ALBUMIN/GLOBULIN RATIO 1.8 (1.0-2.2); CALCIUM 9.6 mg/dL (8.5-10.3); CREATININE 0.9 mg/dL (0.6-1.3); POTASSIUM 4.1 mmol/L (3.5-4.5); TOTAL PROTEIN 6.8 g/dL (6.4-8.9)
[2023-10-15 19:18] LABS: THYROID STIMULATING HORMONE 0.23 uIU/mL (0.34-5.60)
== END 2023-10-15 11:07 | disposition home or self-care (01) ==
LOC: LAB.N 11:06
PROVIDERS: ATTEND Nurse Practitioner
DX: I50.42 Chronic combined systolic (congestive) and diastolic (congestive) heart failure (principal); I48.0 Paroxysmal atrial fibrillation
CPT/HCPCS: 36415; 80053; 83735; 84443; 85027

== ENCOUNTER 2023-11-25 10:36 | Outpatient (CLI) | payer MEDICARE, OTHER ==
[2023-11-25 19:37] LABS: CHOL/HDL RATIO 2.9 (<5.0); CHOLESTEROL 132 mg/dL; HDL CHOLESTEROL 46 mg/dL; LDL CHOLESTEROL,CALCULATED 61 mg/dL; LDL/HDL RATIO 1.3 (<3.6); TRIGLYCERIDES 126 mg/dL; VLDL CHOLESTEROL 25 mg/dL
== END 2023-11-25 10:37 | disposition home or self-care (01) ==
LOC: LAB.N 10:36
PROVIDERS: ATTEND Nurse Practitioner
DX: E03.8 Other specified hypothyroidism (principal); E78.5 Hyperlipidemia, unspecified; I25.119 Atherosclerotic heart disease of native coronary artery with unspecified angina pectoris
CPT/HCPCS: 36415; 80061; 83721; 84439; 84481